=== PATIENT | male | born 1985 | race Hispanic/Latino ===

== ENCOUNTER 2016-05-14 22:11 | Emergency (ER) | payer BC ==
[2016-05-14 22:16] VITALS: BMI 17.9
[2016-05-14 22:20] VITALS: TEMP 98
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
[2016-05-15 00:23] VITALS: BP 112/62; PULSE 74; RESP 16; O2SAT 99
--- NOTE | 2016-05-15 12:25 | RAD ---
PROCEDURE: Left Hand Radiographs. HISTORY: pain s/p trauma COMPARISON: None. FINDINGS: BONES: There is an acute nondisplaced fracture in the neck of the 5th metacarpal with mild dorsal angulation. Bone alignment is normal. JOINTS: The joint spaces are preserved. SOFT TISSUES: There is mild a large soft tissue swelling along the 5th metacarpal. OTHER FINDINGS: None. IMPRESSION: Acute nondisplaced fracture in the neck of the 5th metacarpal with mild dorsal angulation and surrounding soft tissue swelling.
== END 2016-05-15 00:22 | disposition home or self-care (01) ==
LOC: ED 22:11
DX: S62.367A Nondisplaced fracture of neck of fifth metacarpal bone, left hand, initial encounter for closed fracture (principal); W22.01XA Walked into wall, initial encounter; Y93.89 Activity, other specified; Y92.89 Other specified places as the place of occurrence of the external cause